=== PATIENT | male | born 1950 | race Caucasian/White ===

== ENCOUNTER 2019-01-30 05:41 | Day surgery (SDC) | payer BC ==
[2019-01-29 17:08] VITALS: Ht 175.3 cm; Wt 78.2 kg
[~2019-01-30] VITALS: Ht 175.3 cm; Wt 78.2 kg
[2019-01-30] VITALS (7 sets, daily range): BP systolic 102–117; BP diastolic 74–84; PULSE 60–86; RESP 18–31
[2019-01-30] MEDS ORDERED: ATOR20TA38 PO (06:58)
[2019-01-30] MEDS ORDERED: MECL-77 PO (06:58)
[2019-01-30] MEDS ORDERED: ASPI81TA52 PO (06:59)
[2019-01-30] MEDS ORDERED: LOSA1TAB22 PO (06:59)
[2019-01-30] MEDS ORDERED: PROP10TA6 PO (07:00)
[2019-01-30] MEDS ORDERED: FENTAnyl 50 MCG/ML VIAL ONE (07:20)
[2019-01-30] MEDS ORDERED: MIDAZOLAM 1 MG/ML 2 ML INJ ONE (07:20)
[2019-01-30] MEDS ORDERED: HEPARIN 1000 UNITS/NS (A-LINE) 1,000 ML ONE (07:20)
[2019-01-30] MEDS ORDERED: IODIXANOL LOCM 100 ML BTL ONE (07:20)
[2019-01-30] MEDS ORDERED: LIDOCAINE 1% (MDV) 20 ML INJ ONE (07:20)
[2019-01-30] MEDS ORDERED: CEFAZOLIN 1 GM/50 ML (PMX) 100 ML IVPB ONE (07:56)
[2019-01-30] MEDS ORDERED: SOD CHLORIDE 0.9% 1,000 ML IV SCH (08:11)
--- NOTE | 2019-01-30 08:13 | SIPON ---
Date/Time of Note Date/Time of Note DATE: 01/30/19 TIME: 08:11 Operative Report Preoperative Diagnosis PAD, claudication. Postoperative Diagnosis Same Operation/Procedure Performed Angiogram of aorta and B LE runoff. Surgeon see signature line student assistance counselor none Anesthesia: moderate sedation Estimated blood loss: minimal Transfusion Required none Specimen none Grafts/Implants none Complications none RENATO SOLANO MD January 30, 2019 08:13
[2019-01-30] MEDS ORDERED: AL HYDROX/MG HYDROX/SIMETH 30 ML CUP PO PRN (08:30)
[2019-01-30] MEDS ORDERED: ACETAMINOPHEN 325 MG TAB PO PRN (08:30)
--- NOTE | 2019-01-30 19:43 | OPR ---
DATE OF OPERATION: 01/30/2019 PREOPERATIVE DIAGNOSES: Peripheral vascular disease, bilateral popliteal artery aneurysm, infrarenal abdominal aortic aneurysm, left lower extremity claudication, and rest pain. PROCEDURE: Angiogram of aorta and bilateral lower extremity runoff. SURGEON: Preeti Mckeon MD [employer]ODWIND INSTRUMENT REPAIRER: None. ANESTHESIA: Local infiltration with 1% lidocaine with IV contrast sedation. INDICATION OF THE PROCEDURE: The patient is a 68-year-old male who underwent endovascular repair of infrarenal abdominal aortic aneurysm and repair of left popliteal artery aneurysm. However, the patient had failure of the graft, presented with severe claudication of the left lower extremity, numbness, tingling of the left foot at night time. Above-mentioned procedure with possible intervention was discussed with the patient. He understood and agreed to proceed. DESCRIPTION OF PROCEDURE: The patient was brought to the catheterization lab after obtaining informed consent, placed in supine position on the operating table. Incision was clean, prepped and draped in the usual sterile fashion. Local anesthetic was used to infiltrate the skin, subcutaneous tissue and the area of the right femoral artery. Under ultrasound access, micropuncture set was obtained into the right common femoral artery. [employer] wire was used to exchange the micropuncture set sheath into a 5-Romanian sheath. Then, an Omniflush catheter was placed in the aorta and aortogram was done and then at the bifurcation of the stent graft, bilateral lower extremity runoff was done. FINDINGS: 1. Patent infrarenal abdominal aortic aneurysm stent. 2. Mild diffuse bilateral common iliac artery disease. 3. The right lower extremity was patent; common femoral, profunda, SFA and popliteal arteries with 3-vessel runoff to the right ankle, with aneurysmal distal SFA and popliteal artery. 4. Patent right common femoral artery, SFA, and profunda femoris artery with occlusion of the distal SFA and popliteal artery. Reconstitution of the below- knee popliteal artery with diffuse disease and 2-vessel runoff in the form of anterior tibial artery and peroneal artery with diffuse disease. At that point, no intervention was done. Catheter and sheath were removed over the wire. Bleeding from the puncture site was controlled using manual pressure. Dictated By: PREETI CAVANAUGH/АЛЕКСАНДР Conf#: [id number] [facility]#: [id number] [facility] SYSTEMYasmeen
== END 2019-01-30 14:45 | disposition home or self-care (01) ==
LOC: SDS 05:41 → CCL 05:41
PROVIDERS: ATTEND Surgery
DX: I70.213 Atherosclerosis of native arteries of extremities with intermittent claudication, bilateral legs (principal); I73.9 Peripheral vascular disease, unspecified; I10 Essential (primary) hypertension; F17.200 Nicotine dependence, unspecified, uncomplicated
CPT/HCPCS: 36200; 75630; 80053; 85025; 85610; 85730; C1894; J0690; J1644; J2250; Q9967; Z7610; J3010